=== PATIENT | female | born 1960 | race Caucasian/White ===

== ENCOUNTER → 2016-10-29 | Outpatient (CLI) | payer OTHER ==
[~2016-10-29] MED LIST: ASPIRIN 81M81 MG/TA2 PO; CALCIUM1 CAP PO; CETIRIZINE PO; CIPRO 250MG TA250 MG PO; FOSAMAX PO; HYDROCODONE/APAP PO; NORCO 325 MG-51 TAB PO; PROLIA60 MG/ML SC; PROVENTIL0.09 MG/A1 IH; SERTRALINE PO; SINGULAIR 110 MG/TAB PO; SINGULAIR PO; SOMA 350MG350 MG/TAB PO; TYLENOL #4 (1 UDTAB PO; VITAMIN D 77 MG1 TAB PO; VITAMIN D1000 IU PO; ZOLOFT 50MG50 MG PO; ZYRTEC 10MG10 MG PO
[2016-10-29 16:00] LABS: HEMATOCRIT 38.7 % (37.0-47.0); HEMOGLOBIN 12.8 g/dl (12.5-16.0); MEAN CELL VOLUME 89 fl (80.0-100.0); MEAN CORPUSCULAR HEMOGLOBIN 29 pg (27.0-31.0); MEAN CORPUSCULAR HGB CONC 33 g/dl (33.0-37.0); MEAN PLATELET VOLUME 8.2 fl (7.4-10.4); PLATELET COUNT 290 K/mm3 (130-400); RED BLOOD COUNT 4.37 M/mm3 (4.10-5.30); REDCELL DISTRIBUTION WIDTH-CV 13.2 % (11.5-14.5); WHITE BLOOD COUNT 9.3 K/mm3 (4.8-10.8)
[2016-10-29 16:21] LABS: ERYTHROCYTE SEDIMENTATION RATE 8 mm/hr (0-30)
== END ==
LOC: COL.LAB 15:21
PROVIDERS: Nurse Practitioner
DX: Z47.89 Encounter for other orthopedic aftercare (principal); M25.862 Other specified joint disorders, left knee

== ENCOUNTER → 2016-11-23 | Outpatient (CLI) | payer OTHER | LOC: COL.RAD 14:27 | DX: M51.36 Other intervertebral disc degeneration, lumbar region (principal); N20.0 Calculus of kidney ==

== ENCOUNTER → 2016-12-03 | Outpatient (CLI) | payer OTHER ==
[~2016-12-03] VITALS: Ht 160 cm; Wt 52.7 kg
[2016-12-03 12:09] VITALS: BP 111/71; PULSE 74
[2016-12-03 13:50] VITALS: BP 111/72; PULSE 68
== END ==
LOC: COL.RAD 08:36
DX: M54.17 Radiculopathy, lumbosacral region (principal)
CPT/HCPCS: J3301

== ENCOUNTER → 2016-12-08 | Outpatient (CLI) | payer OTHER | LOC: COL.RAD 13:09 | DX: R19.00 Intra-abdominal and pelvic swelling, mass and lump, unspecified site (principal) ==

== ENCOUNTER → 2016-12-17 | Outpatient (CLI) | payer OTHER ==
[~2016-12-17] VITALS: Ht 160 cm; Wt 53.4 kg
[2016-12-17 13:38] VITALS: BP 116/76; PULSE 72
[2016-12-17 14:50] VITALS: BP 125/87; PULSE 67
== END ==
LOC: COL.RAD 12-16 13:15
DX: M54.17 Radiculopathy, lumbosacral region (principal)
CPT/HCPCS: J3301

== ENCOUNTER → 2016-12-22 | Outpatient (CLI) | payer OTHER ==
[2016-12-22 16:33] LABS: HEMATOCRIT 39.9 % (37.0-47.0); HEMOGLOBIN 13.4 g/dl (12.5-16.0); MEAN CELL VOLUME 89 fl (80.0-100.0); MEAN CORPUSCULAR HEMOGLOBIN 30 pg (27.0-31.0); MEAN CORPUSCULAR HGB CONC 34 g/dl (33.0-37.0); MEAN PLATELET VOLUME 8.4 fl (7.4-10.4); PLATELET COUNT 323 K/mm3 (130-400); RED BLOOD COUNT 4.48 M/mm3 (4.10-5.30); REDCELL DISTRIBUTION WIDTH-CV 13.3 % (11.5-14.5)
[2016-12-22 17:00] LABS: ERYTHROCYTE SEDIMENTATION RATE 7 mm/hr (0-30)
== END ==
LOC: COL.LAB 15:45
PROVIDERS: Nurse Practitioner
DX: Z47.89 Encounter for other orthopedic aftercare (principal); M25.562 Pain in left knee; R22.42 Localized swelling, mass and lump, left lower limb; Z96.652 Presence of left artificial knee joint

== ENCOUNTER → 2017-01-13 | Outpatient (CLI) | payer OTHER | LOC: MC.RAD 15:53 | DX: Z12.31 Encounter for screening mammogram for malignant neoplasm of breast (principal) ==

== ENCOUNTER → 2017-03-17 | Outpatient (CLI) | payer OTHER | LOC: COL.RAD 14:06 | DX: M51.27 Other intervertebral disc displacement, lumbosacral region (principal); M48.07 Spinal stenosis, lumbosacral region ==

== ENCOUNTER → 2017-04-27 | Outpatient (REF) | LOC: WSOH 16:19 | DX: Z02.89 Encounter for other administrative examinations (principal) ==

== ENCOUNTER → 2017-08-19 | Outpatient (CLI) | payer OTHER | LOC: COL.RAD 16:06 | DX: S92.911A Unspecified fracture of right toe(s), initial encounter for closed fracture (principal) ==

== ENCOUNTER → 2018-01-03 | Outpatient (CLI) | payer OTHER ==
[2018-01-03 08:37] LABS: COLLECTION METHOD CLEAN CATCH
[2018-01-03 08:43] LABS: BASO # 0.1 (0.0-0.2); BASO % 0.8 % (0.0-2.0); EOS # 0.1 (0.0-0.7); EOS % 1.2 % (0-4.0); GRAN # 4.9 (1.4-6.5); GRAN % 62.7 % (42.2-75.2); HEMATOCRIT 45.4 % (37.0-47.0); HEMOGLOBIN 15.6 g/dl (12.5-16.0); LYMPH # 2.2 (1.2-3.4); LYMPH % 28.3 % (20.0-51.0); MEAN CELL VOLUME 86 fl (80.0-100.0); MEAN CORPUSCULAR HEMOGLOBIN 30 pg (27.0-31.0); MEAN CORPUSCULAR HGB CONC 34 g/dl (33.0-37.0); MONO # 0.5 (0.1-0.6); MONO % 6.7 % (1.7-9.3); PLATELET COUNT 325 K/mm3 (130-400); RED BLOOD COUNT 5.26 M/mm3 (4.10-5.30); REDCELL DISTRIBUTION WIDTH-CV 13.2 % (11.5-14.5)
[2018-01-03 08:44] LABS: PH 6 (5-8); SQUAMOUS EPITHELIAL None Seen /hpf; URINE APPEARANCE Clear; URINE BACTERIA None Seen /hpf; URINE BILIRUBIN Negative (NEGATIVE); URINE BLOOD Negative (NEGATIVE); URINE COLOR Yellow; URINE GLUCOSE Negative (NEGATIVE); URINE KETONE Negative (NEGATIVE); URINE LEUKOCYTE ESTERASE Negative (NEGATIVE); URINE NITRATE Negative (NEGATIVE); URINE PROTEIN(semi-quant) Negative (NEGATIVE); URINE UROBILINOGEN Negative (NEGATIVE)
[2018-01-03 08:57] LABS: ALBUMIN 4.5 gm/dL (3.5-5.0); BILIRUBIN,TOTAL 0.6 mg/dL (0.0-1.0); CHOLESTEROL RISK RATIO 2.6; CREATININE, serum 0.67 mg/dL (0.52-1.25); POTASSIUM 4.7 mmol/L (3.4-5.0); TOTAL PROTEIN 7.9 gm/dL (6.4-8.2)
[2018-01-03 09:27] LABS: TSH w REFLEX 0.53 uIU/mL (0.465-4.680)
== END ==
LOC: COL.LAB 07:55
PROVIDERS: Internal Medicine
DX: Z00.00 Encounter for general adult medical examination without abnormal findings (principal); M81.0 Age-related osteoporosis without current pathological fracture

== ENCOUNTER → 2018-02-14 | Outpatient (CLI) | payer BC | LOC: MC.RAD 07:39 | DX: Z12.31 Encounter for screening mammogram for malignant neoplasm of breast (principal); N64.89 Other specified disorders of breast ==

== ENCOUNTER → 2018-02-15 | Outpatient (CLI) | payer BC | LOC: MC.RAD 09:58 | DX: N64.89 Other specified disorders of breast (principal) ==